=== PATIENT | male | born 1970 | race Caucasian/White ===

== ENCOUNTER 2016-10-16 11:13 | Emergency (ER) | payer MEDICAID ==
--- NOTE | 2016-10-16 11:27 | ER Document Report ---
ED Medical Screen (RME) - General Stated Complaint: CHEST DISCOMFORT Notes: 46 yo male was sent from [place] for chest pain. pt had an axiety attack while at [place] , had right sided chest pain. aggrevated with movement. no shortness of breath. + hx/o [place] last April. TRAVEL OUTSIDE OF THE [place] IN LAST 30 DAYS: No - Related Data Allergies/Adverse Reactions: GILMER Inhibitors [Gilmer Inhibitors] Allergy (Verified 10/16/16 11:34) acetaminophen [From Percocet] Allergy (Verified 10/16/16 11:34) hydrocodone [Hydrocodone] Allergy (Verified 10/16/16 11:34) morphine [Morphine] Allergy (Verified 10/16/16 11:34) oxycodone HCl [From Percocet] Allergy (Verified 10/16/16 11:34) Penicillins Allergy (Verified 10/16/16 11:34) tramadol [Tramadol] Allergy (Verified 10/16/16 11:34) Past Medical History - Past Medical History Cardiac Medical History: Reports: Hx Hypercholesterolemia, Hx Hypertension Musculoskeltal Medical History: Reports Hx Arthritis - Chronic neck pain Psychiatric Medical History: Reports: Hx Depression - MDD Past Surgical History: Reports: Hx Cholecystectomy, Hx Orthopedic Surgery - neck surgery Physical Exam - Vital signs Vitals: Temp Pulse Resp BP Pulse Ox 97.8 F 68 20 130/78 H 97 10/16/16 13:51 10/16/16 13:51 10/16/16 13:51 10/16/16 13:51 10/16/16 13:51 Course - Vital Signs Vital signs: Temp Pulse Resp BP Pulse Ox 97.6 F 67 18 135/82 H 100 10/16/16 14:37 10/16/16 14:37 10/16/16 14:37 10/16/16 14:37 10/16/16 14:37 - Laboratory Result Diagrams: 10/16/16 11:50 10/16/16 11:50 Laboratory results interpreted by me: 10/16/16 11:50 RDW 15.9 H Doctor's Discharge - Discharge Clinical Impression: Chest pain, non-cardiac, Anxiety, Chronic pain Condition: Stable Disposition: HOME, SELF-CARE Additional Instructions: CHEST PAIN OF UNCLEAR CAUSE: The exact cause of your chest pain isn't clear. Fortunately, there is no evidence of a dangerous medical condition. Further testing may be required to find the source of the pain. Most often, we find that this pain is coming from the chest wall -- the muscles or rib joints in the chest. But chest pain can come from the lung and lung lining, the esophagus, the heart valves or heart lining, and even the stomach or gallbladder. Rest. Eat lightly until the pain is gone. We may prescribe medicine for pain and inflammation. You should call the physician immediately if the pain radiates to the shoulder, jaw or arms; if you start to run a fever or develop a cough; or if you develop shortness of breath, or other new or alarming symptoms. NORMAL EXAM AND WORKUP: At this time, your examination and workup show no significant abnormality. No significant abnormal physical findings were noted. All laboratory, EKG, and imaging (x-ray, CT scans, ultrasound) studies that were ordered show no significant abnormality. Although your examination and all studies that were ordered showed no significant abnormal finding, there are no examinations and no studies that are 100% accurate. There is always the possibility that some abnormality could exist and not be detected with physical examination or within the limits and capabilities of laboratory and other studies. You gely CHEST WALL PAIN: Your chest pain may be coming from the chest wall. This is often caused by straining the muscles or joints in the chest during physical activity, direct trauma, coughing, or vigorous vomiting. Persons with arthritis are especially prone to this type of pain, due to inflammation of the cartilage joints near the breast bone. Occasionally, no cause can be found. Rest from strenuous physical activity. This kind of chest pain is usually made worse by movement of the chest. Depending on the symptoms, we may prescribe medicine for pain, muscle relaxation, and antiinflammatory effects. If the pain is new, and seems to be due to muscle strain, cold packs can help. Otherwise, apply gentle warmth to the painful area for 15 minutes every hour or two. You should call contact the doctor immediately if things change. Further evaluation is needed if you develop a fever or cough, if the nature of the pain changes, or if you become short of breath. Anxiety The physician feels that some of your health problems are being caused by anxiety. Anxiety affects your health in many ways. Anxiety alone can cause palpitations, sweats, chest pains, abdominal pains, shortness of breath, and headaches. It contributes to ulcer disease, high blood pressure, irritable bowel syndrome, and has been shown to cause flare-ups of many other diseases. Anxiety is not a simple disorder to treat. If the anxiety is due to recent life stresses, you may simply need time to "work through" the changes. If the anxiety is due to an underlying unhappiness with yourself or due to psychiatric disturbance, professional help will be needed. Your physician can refer you for further help if needed. Anti-anxiety medication is occasionally given if the stress is acute or if you are having trouble sleeping. Chronic or frequent use of these medications is not a good idea because the body becomes reliant on it, preventing you from dealing with life's normal stresses. FOLLOW-UP CARE: If you have been referred to a physician for follow-up care, call the physician s office for an appointment as you were instructed or within the next two days. If you experience worsening or a significant change in your symptoms, notify the physician immediately or return to the Emergency Department at any time for re-evaluation. Take your prescribed medications for chronic pain, stress and anxiety, and PTSD. Return if you have new or worsening symptoms of concern. Referrals: NETTA PARRA MD [Primary Care Provider] - Follow up as needed
[2016-10-16 12:20] LABS: ABSOLUTE BASOPHILS # (AUTO) 0.1 10^3/uL (0.0-0.2); ABSOLUTE EOSINOPHILS # (AUTO) 0.3 10^3/uL (0.0-0.6); ABSOLUTE LYMPHOCYTES (AUTO) 1.9 10^3/uL (0.5-4.7); ABSOLUTE MONOCYTES (AUTO) 0.7 10^3/uL (0.1-1.4); ABSOLUTE NEUT (AUTO) 4.1 10^3/uL (1.7-8.2); BASOPHILS % (AUTO) 0.8 % (0-2); EOSINOPHILS % (AUTO) 4.3 % (0-6); HEMATOCRIT 42.1 % (37.9-51.0); HEMOGLOBIN 14.3 g/dL (13.5-17.0); HGB HCT DIFFERENCE 0.8; LYMPHOCYTES % (AUTO) 26.8 % (13-45); MEAN CORPUSCULAR HEMOGLOBIN 28.9 pg (27.0-33.4); MEAN CORPUSCULAR HGB CONC 33.8 g/dL (32.0-36.0); MEAN CORPUSCULAR VOLUME 85 fl (80-97); MONOCYTES % (AUTO) 9.4 % (3-13); RED BLOOD COUNT 4.94 10^6/uL (4.35-5.55); RED CELL DISTRIBUTION WIDTH 15.9 % (11.5-14.0); SEGMENTED NEUTROPHILS % (AUTO) 58.7 % (42-78)
[2016-10-16 12:50] LABS: ALANINE AMINOTRANSFERASE 40 U/L (21-72); ALBUMIN 4.2 g/dL (3.5-5.0); ALKALINE PHOSPHATASE 98 U/L (38-126); ANION GAP 10 (5-19); ASPARTATE AMINO TRANSFERASE 26 U/L (17-59); BLOOD UREA NITROGEN 20 mg/dL (7-20); CALCIUM 9.7 mg/dL (8.4-10.2); CARBON DIOXIDE 29 mmol/L (22-30); CHLORIDE 105 mmol/L (98-107); CREATINE KINASE 91 U/L (55-170); CREATININE RESULT 0.97 mg/dL (0.52-1.25); GLUCOSE 99 mg/dL (75-110); POTASSIUM 4.1 mmol/L (3.6-5.0); SODIUM 143.7 mmol/L (137-145); TOTAL PROTEIN 7.3 g/dL (6.3-8.2)
[2016-10-16 12:59] LABS: CREATINE KINASE MB 0.52 ng/mL (<4.55); TROPONIN I < 0.012 ng/mL
[2016-10-16 14:39] VITALS: BP 135/82
--- NOTE | 2016-10-16 14:41 | ER Document Report ---
ED Cardiac - General Chief Complaint: Neck Pain < 24hrs old Stated Complaint: CHEST DISCOMFORT Notes: Patient says that he's been having pain in his right arm and to the right of center of his chest today. He says that he became very stressed at a conversation he was having with his son's mother and she was "chewing me out" while in their car on the way to his appointment at [facility]. He first had pain in the right arm and numbness of the fingers of the right hand and raised the arm up to eliminate the pain but then when he tried to put his arm down, he developed pain in the right anterior chest. When he got to [facility], they took him to the [facility]. Patient takes a couple of his own nitroglycerin and also had a nitroglycerin at the [facility]. He is not sure if they actually helped or not. He did not have any shortness of breath. No nausea or vomiting. No fevers. Patient has a history of PTSD, stress and anxiety, depression. Care for at the [facility] and at [facility]. Also has hypertension. Had a cardiac catheter last April and had one stent placed in one of his coronary arteries. He is in a very stressful situation as his son's mother recently moved here from [place] and lives in a small house that the patient filled for the lady. Patient says that she has created a tremendous amount of stress in his life. TRAVEL OUTSIDE OF THE [place] IN LAST 30 DAYS: No - Related Data Allergies/Adverse Reactions: GILMER Inhibitors [Gilmer Inhibitors] Allergy (Verified 10/16/16 11:34) acetaminophen [From Percocet] Allergy (Verified 10/16/16 11:34) hydrocodone [Hydrocodone] Allergy (Verified 10/16/16 11:34) morphine [Morphine] Allergy (Verified 10/16/16 11:34) oxycodone HCl [From Percocet] Allergy (Verified 10/16/16 11:34) Penicillins Allergy (Verified 10/16/16 11:34) tramadol [Tramadol] Allergy (Verified 10/16/16 11:34) Past Medical History - Social History Smoking Status: Unknown if Ever Smoked Cigarette use (# per day): No Family History: Reviewed & Not Pertinent Patient has suicidal ideation: No Patient has homicidal ideation: No - Past Medical History Cardiac Medical History: Reports: Hx Hypercholesterolemia, Hx Hypertension Endocrine Medical History: Denies: Hx Diabetes Mellitus Type 1, Hx Diabetes Mellitus Type 2 Musculoskeltal Medical History: Reports Hx Arthritis - Chronic neck pain Psychiatric Medical History: Reports: Hx Anxiety, Hx Depression - MDD, Hx Post Traumatic Stress Disorder Past Surgical History: Reports: Hx Cholecystectomy, Hx Orthopedic Surgery - neck surgery Review of Systems - Review of Systems Notes: REVIEW OF SYSTEMS: CONSTITUTIONAL : Denies fever. EENT: Denies eye, ear, nose or mouth or throat pain or other symptoms. CARDIOVASCULAR: Has pain to the right of the sternum. RESPIRATORY: Denies cough, chest congestion, or shortness of breath. GASTROINTESTINAL: Denies abdominal pain or nausea, vomiting, or diarrhea. GENITOURINARY: Denies difficulty or painful urinating, urinary frequency, blood in urine. MUSCULOSKELETAL: Denies back or neck pain. Denies joint pain or swelling. Had pain in his right arm. SKIN: Denies rash or skin lesions. NEUROLOGICAL: Denies LOC or altered mental status. Denies headache. Denies sensory loss or motor deficits. ALL OTHER SYSTEMS REVIEWED AND NEGATIVE. Physical Exam - Vital signs Vitals: Temp Pulse Resp BP Pulse Ox 97.8 F 68 20 130/78 H 97 10/16/16 13:51 10/16/16 13:51 10/16/16 13:51 10/16/16 13:51 10/16/16 13:51 Vital signs are all normal Interpretation: Normal - Notes Notes: PHYSICAL EXAMINATION: GENERAL: Well-appearing, in no acute distress. HEAD: Atraumatic, normocephalic. NECK: Normal range of motion, supple. LUNGS: Breath sounds clear and equal bilaterally. No anterior chest wall tenderness to palpation. Does say is painful for him to turn his head and to raise his arms and to twist his body. HEART: Regular rate and rhythm without murmurs. No rubs. ABDOMEN: Soft, nontender. No guarding or rebound. BACK: No tenderness throughout entire back. EXTREMITIES: Normal range of motion without pain. Negative Homans bilaterally. NEUROLOGICAL: Normal speech, normal gait. Normal sensory, motor, and reflex exams. Awake, alert, and oriented x3. Cranial nerves normal. PSYCH: Anxious, ?Depressed. SKIN: Warm, dry, no rashes. Course - Re-evaluation Re-evalutation: 10/16/16 14:44 Patient says he wants to go home. He feels much better. Has a reproducible element to the pain he is experiencing. He thinks it's due to stress. I tend to agree with him. He has medications to take for his nervous conditions. He is allergic to numerous other medicines are not going to prescribe anything new. - Vital Signs Vital signs: Temp Pulse Resp BP Pulse Ox 97.6 F 67 18 135/82 H 100 10/16/16 14:37 10/16/16 14:37 10/16/16 14:37 10/16/16 14:37 10/16/16 14:37 - Laboratory Result Diagrams: 10/16/16 11:50 10/16/16 11:50 Laboratory results interpreted by me: 10/16/16 11:50 RDW 15.9 H - Diagnostic Test Radiology reviewed: Image reviewed, Reports reviewed - Chest x-ray is normal. - EKG Interpretation by Me EKG shows normal: Sinus rhythm Rate: Normal - At 63. Rhythm: NSR Additional EKG results interpreted by me: 10/16/16 14:41 EKG is completely normal. Discharge - Discharge Clinical Impression: Chest pain, non-cardiac, Anxiety Chronic pain Qualifiers: Chronic pain type: other chronic pain Qualified Code(s): G89.29 - Other chronic pain Condition: Stable Disposition: HOME, SELF-CARE Additional Instructions: CHEST PAIN OF UNCLEAR CAUSE: The exact cause of your chest pain isn't clear. Fortunately, there is no evidence of a dangerous medical condition. Further testing may be required to find the source of the pain. Most often, we find that this pain is coming from the chest wall -- the muscles or rib joints in the chest. But chest pain can come from the lung and lung lining, the esophagus, the heart valves or heart lining, and even the stomach or gallbladder. Rest. Eat lightly until the pain is gone. We may prescribe medicine for pain and inflammation. You should call the physician immediately if the pain radiates to the shoulder, jaw or arms; if you start to run a fever or develop a cough; or if you develop shortness of breath, or other new or alarming symptoms. NORMAL EXAM AND WORKUP: At this time, your examination and workup show no significant abnormality. No significant abnormal physical findings were noted. All laboratory, EKG, and imaging (x-ray, CT scans, ultrasound) studies that were ordered show no significant abnormality. Although your examination and all studies that were ordered showed no significant abnormal finding, there are no examinations and no studies that are 100% accurate. There is always the possibility that some abnormality could exist and not be detected with physical examination or within the limits and capabilities of laboratory and other studies. You gely CHEST WALL PAIN: Your chest pain may be coming from the chest wall. This is often caused by straining the muscles or joints in the chest during physical activity, direct trauma, coughing, or vigorous vomiting. Persons with arthritis are especially prone to this type of pain, due to inflammation of the cartilage joints near the breast bone. Occasionally, no cause can be found. Rest from strenuous physical activity. This kind of chest pain is usually made worse by movement of the chest. Depending on the symptoms, we may prescribe medicine for pain, muscle relaxation, and antiinflammatory effects. If the pain is new, and seems to be due to muscle strain, cold packs can help. Otherwise, apply gentle warmth to the painful area for 15 minutes every hour or two. You should call contact the doctor immediately if things change. Further evaluation is needed if you develop a fever or cough, if the nature of the pain changes, or if you become short of breath. Anxiety The physician feels that some of your health problems are being caused by anxiety. Anxiety affects your health in many ways. Anxiety alone can cause palpitations, sweats, chest pains, abdominal pains, shortness of breath, and headaches. It contributes to ulcer disease, high blood pressure, irritable bowel syndrome, and has been shown to cause flare-ups of many other diseases. Anxiety is not a simple disorder to treat. If the anxiety is due to recent life stresses, you may simply need time to "work through" the changes. If the anxiety is due to an underlying unhappiness with yourself or due to psychiatric disturbance, professional help will be needed. Your physician can refer you for further help if needed. Anti-anxiety medication is occasionally given if the stress is acute or if you are having trouble sleeping. Chronic or frequent use of these medications is not a good idea because the body becomes reliant on it, preventing you from dealing with life's normal stresses. FOLLOW-UP CARE: If you have been referred to a physician for follow-up care, call the physician s office for an appointment as you were instructed or within the next two days. If you experience worsening or a significant change in your symptoms, notify the physician immediately or return to the Emergency Department at any time for re-evaluation. Take your prescribed medications for chronic pain, stress and anxiety, and PTSD. Return if you have new or worsening symptoms of concern. Referrals: NETTA PARRA MD [Primary Care Provider] - Follow up as needed
--- NOTE | 2016-10-16 20:34 | EKG REPORT ---
SEVERITY:- NORMAL ECG - SINUS RHYTHM : Confirmed by: Gab Sheth MD 16-Oct-2016 20:33:47
== END 2016-10-16 14:37 | disposition home or self-care (01) ==
LOC: ER 11:13
DX: R07.89 Other chest pain (principal); F41.9 Anxiety disorder, unspecified; G89.29 Other chronic pain; M54.2 Cervicalgia; F43.10 Post-traumatic stress disorder, unspecified; F32.9 Major depressive disorder, single episode, unspecified
CPT/HCPCS: 36415; 71020; 80053; 82550; 82553; 84484; 85025; 93005; 93010; 99285